=== PATIENT | female | born 1970 | race Two or more races ===

== ENCOUNTER 2020-02-28 14:53 | Inpatient (IN) | payer MEDICAID, OTHER ==
[~2020-02-28] VITALS: Ht 170.2 cm; Wt 209.7 kg
[2020-02-28] MEDS ORDERED: MORPHINE SULFATE 4 MG/ML SYR/VIAL IV ONE (15:30)
[2020-02-28] MEDS ORDERED: ASPirin 81 mg TAB PO ONE (15:30)
[2020-02-28] MEDS ORDERED: ONDANSETRON HCL 4 MG/2 ML VIAL IV ONE (15:30)
[2020-02-28] MEDS ORDERED: IOHEXOL 350 MG/ML 100ML IJ ONE (19:03)
[2020-02-28 19:29] LABS: Basophils # (auto) 0.1 10 ^3/uL (0-0.2); Eosinophils # (auto) 0.1 10 ^3/uL (0-0.8); Eosinophils % (auto) 2.1 % (0.0-7.0); Hematocrit 43.3 % (36.0-46.0); Hemoglobin 14.2 g/dL (12.2-16.2); Lymphocytes # (auto) 2.1 10 ^3/uL (0.4-5.4); Lymphocytes % (auto) 29.5 % (10.0-50.0); Mean Corpuscular Hemoglobin 29.4 pg (28.0-32.0); Mean Corpuscular Hgb Conc. 32.8 g/dL (32.0-36.0); Mean Corpuscular Volume 89.5 fL (80.0-100.0); Monocytes # (auto) 0.5 10 ^3/uL (0-1.3); Monocytes % (auto) 7.6 % (0.0-12.0); Neutrophils # (auto) 4.2 10 ^3/uL (1.6-8.6); Neutrophils % (auto) 59.8 % (37.0-80.0); Nucleated Red Blood Cells % 0.1 %; Platelet Count (auto) 230 10^3/uL (140-450); Red Blood Cells 4.83 10^6/uL (4.0-5.20); Red Cell Distribution Width 13.8 % (11.8-14.3)
[2020-02-28 19:43] LABS: Albumin 3.9 g/dL (3.4-5.0); Anion Gap 7 (5-15); Blood Urea Nitrogen 16 mg/dL (7-18); Calcium 9.1 mg/dL (8.5-10.1); Carbon Dioxide 27 mmol/L (21-32); Chloride 103 mmol/L (98-107); Glucose 94 mg/dL (74-106); Sodium 137 mmol/L (136-145)
[2020-02-28 19:51] LABS: Alanine Aminotransferase 42 U/L (13-56); Alkaline Phosphatase 60 U/L (45-117); Aspartate Aminotransferase 26 U/L (15-37); BUN/Creatinine Ratio 19.3; Bilirubin, Total 0.4 mg/dL (0.2-1.0); GFR African American 95 mL/min; GFR Non-African American 78 mL/min; Total Protein 7.6 g/dL (6.4-8.2)
[2020-02-28] MEDS ORDERED: ONDANSETRON HCL 4 MG/2 ML VIAL IV PRN (21:00)
[2020-02-28] MEDS ORDERED: MORPHINE SULF INJ 2 MG/ML SYRINGE 1ML IV PRN (21:00)
[2020-02-28] MEDS ORDERED: levoFLOXacin 500MG 100 ML IV ONE (21:00)
[2020-02-28] MEDS ORDERED: NITROGLYCERIN 0.4 MG SL TAB SL PRN (21:00)
[2020-02-28] MEDS ORDERED: TEMAZEPAM 15 MG CAP PO PRN (21:00)
[2020-02-28] MEDS: FAMOTIDINE 20 MG TAB PO SCH (22:28)
[2020-02-28] MEDS: ACETAMINOPHEN 325 MG TAB PO PRN (22:29)
--- NOTE | 2020-02-29 00:15 | NUR ---
Telemetry admit from MICHELE ARRIAZACAPRI admitted to Telemetry unit. Patient oriented to LATISHA ARRIOLA, RN primary RN, unit, room, bed, and unit policies regarding patient care and visiting hours. Patient now on continuous telemetry monitoring, tele box #15 and telemetry reading on arrival to unit is SR-[id number]. Patient weighed by bedscale and encouraged to call if they need something. All questions and concerns addressed, patient verbalized understanding.
[2020-02-29 03:10] VITALS: BP 118/81
[2020-02-29 05:00] VITALS: BP 122/76
--- NOTE | 2020-02-29 07:30 | NUR ---
Opening Shift Note Assumed care of patient, awake and alert. No S/S of distress/SOB or pain. Instructed on POC and to call for assist PRN, will continue to monitor for changes Q1hr and PRN.
[2020-02-29 07:43] LABS: Basophils # (auto) 0.1 10 ^3/uL (0-0.2); Eosinophils # (auto) 0.1 10 ^3/uL (0-0.8); Eosinophils % (auto) 1.9 % (0.0-7.0); Hematocrit 42.6 % (36.0-46.0); Hemoglobin 13.7 g/dL (12.2-16.2); Lymphocytes % (auto) 32.5 % (10.0-50.0); Mean Corpuscular Hemoglobin 29.2 pg (28.0-32.0); Mean Corpuscular Hgb Conc. 32.1 g/dL (32.0-36.0); Mean Corpuscular Volume 90.8 fL (80.0-100.0); Monocytes # (auto) 0.6 10 ^3/uL (0-1.3); Monocytes % (auto) 9.9 % (0.0-12.0); Neutrophils # (auto) 3.3 10 ^3/uL (1.6-8.6); Neutrophils % (auto) 54.7 % (37.0-80.0); Platelet Count (auto) 207 10^3/uL (140-450); Red Blood Cells 4.69 10^6/uL (4.0-5.20); Red Cell Distribution Width 13.7 % (11.8-14.3)
[2020-02-29 08:00] VITALS: BP 114/74
[2020-02-29 08:05] LABS: BUN/Creatinine Ratio 17.2; Calcium 8.7 mg/dL (8.5-10.1); Potassium 3.9 mmol/L (3.5-5.1)
[2020-02-29] MEDS: ENOXAPARIN SOD 40 MG/0.4 ML SYRINGE SC SCH (10:33)
[2020-02-29] MEDS: levoFLOXacin 500MG 100 ML IV SCH (10:33)
[2020-02-29] MEDS: FAMOTIDINE 20 MG TAB PO SCH ×2 (10:34→22:26)
[2020-02-29] MEDS: ASPirin 81 mg TAB PO SCH (10:34)
[2020-02-29 12:00] VITALS: BP 122/76
[2020-02-29 16:48] VITALS: BP 109/66
--- NOTE | 2020-02-29 19:15 | NUR ---
REPORT GIVEN TO SUPERVISOR LAUNDRY RN, ONCOMING NURSE WILL ASSUME CARE OF PATIENT.
--- NOTE | 2020-02-29 19:40 | NUR ---
Opening Shift Note Assumed care of patient, awake and alert. No S/S of distress/SOB or pain. Bed is locked in lowest position with call light within reach. Instructed on POC and to call for assist PRN, will continue to monitor for changes Q1hr and PRN.
[2020-02-29 22:14] VITALS: BP 110/75
--- NOTE | 2020-03-01 00:55 | NUR ---
PAIN ASSESSMENT The patient c/o 3/10 mouth discomfort and requested is requesting Tylenol for the pain. Will treat with PRN Acetaminophen and will reevaluate.
[2020-03-01] MEDS: ACETAMINOPHEN 325 MG TAB PO PRN ×2 (01:00→18:00)
--- NOTE | 2020-03-01 02:00 | NUR ---
PAIN REASSESSMENT The patient states that her pain has improved and rates her pain as 0/10. She is resting comfortably in bed. Will continue to monitor the patient's status.
[2020-03-01 05:36] VITALS: BP 114/80
--- NOTE | 2020-03-01 08:00 | NUR ---
ASSESSMENT NOTE PT IS ALERT ORIENTED X4, RESTING IN BED COMFORTABLY ABLE TO SELF REPOSITIO AND VERBALIS HER DEMANDS, PT OBESE BUT FIT, VERY LARGE SOFT ABDOMEN NOTED, PAIN 0/10, CALL LIGHT WITHIN REACH
[2020-03-01 09:00] VITALS: BP 121/83
--- NOTE | 2020-03-01 10:00 | NUR ---
SORE THROAT PT STATED < WHEN I LAY DOWN I FEEL MY THROAT IS SORE > , PT MADE AWARE THAT HOSPITAL LIST WILL MAKE THEIR ROUNDING, AND WILL LET HIM KNOW, ALSO PT MADE AWARE OF THE PLAN OF CARE THAT DR CHILEL THE TIRE MAN WILL SEE HER TODAY
[2020-03-01] MEDS: ENOXAPARIN SOD 40 MG/0.4 ML SYRINGE SC SCH (10:22)
[2020-03-01] MEDS: ASPirin 81 mg TAB PO SCH (10:22)
[2020-03-01] MEDS: FAMOTIDINE 20 MG TAB PO SCH ×2 (10:22→21:08)
[2020-03-01] MEDS: levoFLOXacin 500MG 100 ML IV SCH (10:22)
--- NOTE | 2020-03-01 12:40 | NUR ---
DR XAVIER IS HERE FOLLOWING UP ON PT WITH NEW ORDERS
--- NOTE | 2020-03-01 14:00 | NUR ---
PATIENT REPORT GIVEN TO JALYN TOLLIVER WITH ALL PATIENT'S UPDATE, PT IS GOING TO ROOM 221B
--- NOTE | 2020-03-01 14:10 | NUR ---
TRANSFER PT OUT FROM THE COVID UNIT TO ROOM 221B WITH PRASHANTLY, PT MADE AWARE THAT SHE IS NEGATIVE FOR COVID
--- NOTE | 2020-03-01 14:10 | NUR ---
Patient transferred Patient transferred to [place] at this time. Patient ambulated to bed. No distress noted. Patient on room air. Oriented patient to Phyllis TOLLIVER.
[2020-03-01 16:18] VITALS: BP 112/70
--- NOTE | 2020-03-01 19:04 | NUR ---
Closing Shift Note Patient resting in bed. No distress noted. Will endorse care to the customer experience intern RN.
[2020-03-01 22:00] VITALS: BP 104/55
[2020-03-02 05:00] VITALS: BP 114/69
--- NOTE | 2020-03-02 07:30 | NUR ---
Opening Shift Note Assuming care of patient at this time. Patient is awake and alert. Patient shows no signs or symptoms of distress or shortness of breath. Bed is locked and lowered with side rails up x2. Instructed patient on the plan of care for today and to call for assistance as needed. Call light within reach. Will continue to round hourly and as needed.
[2020-03-02 09:00] VITALS: BP 104/72
[2020-03-02] MEDS ORDERED: OPTISON 3ml Vial for INJ IV ONE ×2 (10:07→10:15)
[2020-03-02] MEDS: levoFLOXacin 500MG 100 ML IV SCH (10:43)
[2020-03-02] MEDS: ACETAMINOPHEN 325 MG TAB PO PRN (10:43)
[2020-03-02] MEDS: FAMOTIDINE 20 MG TAB PO SCH (10:44)
[2020-03-02] MEDS: ASPirin 81 mg TAB PO SCH (10:44)
[2020-03-02] MEDS: ENOXAPARIN SOD 40 MG/0.4 ML SYRINGE SC SCH (10:48)
[2020-03-02 13:00] VITALS: BP 119/84
--- NOTE | 2020-03-02 17:00 | NUR ---
SWALLOW EVALUATED. PATIENT HAS NATURAL TEETH. ABLE TO FOLLOW DIRECTIONS AND HAVE A DISCUSSION REGARDING PT'S FEELING OF FOOD STUCK AT ALL TIMES. EMISSIONS TECHNICIAN SHOWED PT LARYNGEAL EXERCISES. RECOMMENDED TO NURSE THAT PATIENT MAY NEED INSTRUMENTATION SUCH A MODIFIED BARIUM SWALLOW EXAM TO DETERMINE CAUSE OF DIFFICULTY. PATIENT ABLE TO TOLERATE REGULAR TEXTURE DIET WITH THIN LIQUIDS WITH NO OVERT SIGNS OR SYMPTOMS OF ASPIRATION.
--- NOTE | 2020-03-02 18:55 | NUR ---
Closing Shift Note Patient resting in bed. No distress noted. Will endorse care to the operation shift supervisor RN.
--- NOTE | 2020-03-02 19:26 | NUR ---
Opening Shift Note Assumed care of patient after receiving report. Patient is awake and alert with no S/S of distress/SOB or pain. Call light within reach, bed in lowest locked position x2 side rails, HOB semi fowlers. Instructed on POC and to call for assist PRN, will continue to monitor for changes Q1hr and PRN.
[2020-03-02 20:38] VITALS: BP 125/72
--- NOTE | 2020-03-02 21:56 | NUR ---
Discharge completed after receiving order from MD. Discharge paperwork reviewed and given to patient after HIPPA checked by second RN. IV DC'd from right upper arm, hall monitor removed and sent back to athletic monitor. Patient awaiting arrival of ride.
--- NOTE | 2020-03-02 22:17 | NUR ---
Patient off unit. Taken down via wheelchair by NA. All belongings with patient.
== END 2020-03-02 22:17 | disposition home or self-care (01) | DRG 139 ==
LOC: EDBD 14:53 → ER 14:53 → TELE 14:54 → TELE-EAST 23:00 → TELE-CENTR 03-01 14:14
PROVIDERS: ADMIT Nurse Practitioner; ATTEND Internal Medicine
DX: J18.9 Pneumonia, unspecified organism (principal); R07.89 Other chest pain; E66.01 Morbid (severe) obesity due to excess calories; I10 Essential (primary) hypertension; Z20.828 Contact with and (suspected) exposure to other viral communicable diseases; Z80.3 Family history of malignant neoplasm of breast; Z82.49 Family history of ischemic heart disease and other diseases of the circulatory system; Z68.45 Body mass index [BMI] 70 or greater, adult; Z79.899 Other long term (current) drug therapy
CPT/HCPCS: 36415; 71045; 80048; 80053; 83880; 84439; 84443; 84484; 85025; 85379; 87426; 92610; 93005; 93306; 93970; G0378; J1956; Q9956